=== PATIENT | male | born 1955 | race Caucasian/White ===

== ENCOUNTER → 2016-10-23 | Outpatient (CLI) | payer BC ==
[~2016-10-23] MED LIST: LRT5; [UNRECOGNIZED DRUG - OTHER]
== END | disposition home or self-care (01) ==
LOC: C.RDSM 14:20
PROVIDERS: ATTEND Physical Medicine & Rehabilitation Sports Medicine
DX: M25.551 Pain in right hip (principal)

== ENCOUNTER → 2018-03-04 | Outpatient (CLI) | payer BC, OTHER | END | disposition home or self-care (01) | LOC: C.RDSM 10:44 | PROVIDERS: ATTEND Physical Medicine & Rehabilitation Sports Medicine | DX: M25.571 Pain in right ankle and joints of right foot (principal) ==